=== PATIENT | female | born 1945 | race Caucasian/White ===

== ENCOUNTER 2018-08-19 07:11 | Inpatient (IN) | payer MEDICARE ==
--- NOTE | 2018-08-11 12:22 | HP ---
AMENDED REPORT NOW INCLUDES COSIGNER DESIGNATION HISTORY AND PHYSICAL: DATE OF SURGERY: 08/19/18 DATE OF OFFICE VISIT: 08/11/18 SURGEON: Ayanna Kevin MD.* (DICTATED BY VISHNU WEST) PROCEDURE: Left total hip arthroplasty. CHIEF COMPLAINT: Left hip pain. HISTORY OF PRESENT ILLNESS: Ms. Hong is a 73-year-old female with continued complaints of left hip pain. She has failed conservative treatment and elected to proceed with a left total hip arthroplasty. PAST MEDICAL HISTORY: CLL. PAST SURGICAL HISTORY: Cataract removal, meatotomy, and tonsillectomy. CURRENT MEDICATIONS: 1. Tramadol 50 mg 2 to 3 times a day as needed. 2. Glucosamine. 3. Multivitamin. 4. Aspirin. ALLERGIES: SULFA. FAMILY HISTORY: Brain cancer. SOCIAL HISTORY: She is a 73-year-old female. She lives alone. She does not smoke or use drugs. She uses alcohol occasionally. REVIEW OF SYSTEMS: A complete 14-point review of systems was reviewed with the patient. It is all negative or noncontributory. She denies history of DVT, PE , hepatitis, HIV, or anesthesia problems. PHYSICAL EXAMINATION GENERAL: She is well developed, well nourished, in no acute distress. VITAL SIGNS: She stands 5 feet 1 inch tall, weighs 189 pounds. Her blood pressure is 146/86 and heart rate is 100. HEENT: Normocephalic, atraumatic. NECK: Supple. No palpable lymph nodes. PULMONARY: The lungs are clear to auscultation bilaterally. CARDIO: Regular rate and rhythm. Strong S1, S2. ABDOMEN: Soft, nontender, nondistended. NEUROLOGIC: She is alert and oriented x3. MUSCULOSKELETAL: Left lower extremity: The skin is intact. There are no open wounds or abrasions. She walks with an antalgic-type gait favoring her left hip. She has decreased internal and external rotation of the left hip. She has 2+ dorsalis pedis pulse. She has intact sensation in her lower extremities. Muscle group strength is intact at 5/5. ASSESSMENT AND PLAN: Ms. Hong is a 73-year-old female with end-stage osteoarthritis of the left hip. She has failed conservative treatment and elected to proceed with a left total hip arthroplasty. Surgery scheduled for with Dr. Kevin. Dr. Kevin discussed the risks and benefits of the surgery at today's visit and all of her questions were answered. She will follow up with Dr. Kevin 2 weeks after the surgery. VISHNU WEST [id number]/[facility] #: [id number] MTDLuz Maria
[~2018-08-19 07:11] MED LIST: Buffered Lidocaine 1% SYRIN* 1 ML/SYRINGE INTRADERM ONE; Famotidine IV* 10 MG/ML 2 ML (20 mg) IV ONE; Gabapentin CAP(*) 300 MG PO ONE; Lactated Ringers 1000 ML Bag* 1,000 ML IV SCH
--- OUTSIDE RECORDS SUMMARY | 2018-08-19 07:14 | XMS REPORT | Continuity of Care Document ---
:1945 External Reference #:[id number] Author Name Bev Perales Care Team Providers Name Role Phone Mary Ryder MD Primary Care Physician Unavailable Payers Date Identification Numbers Payment Provider Subscriber Policy Number: [id number] [employer] [address] Hong PayID: [id number] [address] [address] Attn: [place] [address] Advance Directives Description No Information Available Problems Date Description Provider Status Onset: 03/19/2018 Localized, primary osteoarthritis of the Ayanna Joseph Kevin Active pelvic region and thigh Family History Date Family Member(s) Observation Comments General Cancer Social History Type Date Description Comments Sex Unknown Lives With Alone Occupation Retired ETOH Use Occasionally consumes alcohol Tobacco Use Start: Unknown Patient has never smoked Smoking Status Reviewed: 08/11/18 Patient has never smoked Exercise Type/Frequency Exercises sporadically Allergies, Adverse Reactions, Alerts Date Description Reaction Status Severity Comments 03/19/2018 Sulfa Antibiotics Active Medications Medication Date Status Form Strength Qnty SIG Indications Ordering Provider Tramadol HCL Active Tablets 50mg 60tabs 1 tab Ayanna 018 marisol Kevin M.D. times a day as needed for pain Glucosamine Active Unknown 000 Multi Complete Active Unknown 000 Aspirin Active Unknown 000 Garlic Hx Unknown 000 - 019 Medications Administered in Office Medication Date Status Form Strength Qnty SIG Indications Ordering Provider No Injection Administered Injection Ayanna 018 Joseph Kevin Depomedrol Administered Injection Ayanna 40MG 018 Herberth, M.D. Immunizations Description No Information Available Vital Signs Date Vital Result Comment 08/11/2018 9:14am Height 61.5 inches 5'1.50" Weight 189.00 lb Heart Rate 100 /min BP Systolic 146 mmHg BP Diastolic 86 mmHg BMI (Body Mass Index) 35.1 kg/m2 06/16/2018 8:14am Height 61.5 inches 5'1.50" Weight 189.00 lb Heart Rate 92 /min BP Systolic 128 mmHg BP Diastolic 72 mmHg BMI (Body Mass Index) 35.1 kg/m2 04/28/2018 11:44am Height 61.5 inches 5'1.50" Heart Rate 88 /min BP Systolic 128 mmHg BP Diastolic 80 mmHg Body Temperature 98.1 F Pain Level 1 04/14/2018 11:42am Heart Rate 84 /min BP Systolic 132 mmHg BP Diastolic 80 mmHg Body Temperature 97.4 F Pain Level 5 03/19/2018 11:29am Height 61.5 inches 5'1.50" Weight 192.00 lb Heart Rate 88 /min BP Systolic 146 mmHg BP Diastolic 80 mmHg BMI (Body Mass Index) 35.7 kg/m2 Results Description No Information Available Procedures Date Code Description Status 04/14/2018 78318 Inj/Aspir Major JT Or Bursa W/ US Completed Encounters Type Date Location Provider Dx Diagnosis Office Visit 06/16/2018 [email or web address] Unilateral primary 8:00a [facility], left hip M25.552 Pain in left hip Office Visit 04/28/2018 Orthopedic Ayanna M16.12 Unilateral primary 11:30a [facility] osteoarthritis, left [facility] hip M25.552 Pain in left hip Office Visit 03/19/2018 11:00a [facility] Ayanna Kevin M25.552 Pain in left [facility] hip M16.12 Unilateral primary osteoarthritis, left hip Plan of Treatment Future Appointment(s):09/01/2018 9:15 am - Ayanna Kevin M.D. at [facility]/19/2018 10:30 am - Fadi Montiel PA-C at [facility]08/19/2018 10:30 am - VISHNU Fields at [facility]08/19/2018 10:30 am - Ayanna Kevin M.D. at [facility]08/11/2018 - Ayanna Kevin M.D.M16.12 Unilateral primary osteoarthritis, left hipFollow up:Follow up: 2 weeks after [id number] Pain in left hip
[2018-08-19] MEDS ORDERED: Gabapentin CAP(*) 300 MG ONE (07:43)
[2018-08-19] MEDS ORDERED: Famotidine IV* 10 MG/ML 2 ML (20 mg) ONE (07:43)
[2018-08-19] MEDS ORDERED: Buffered Lidocaine 1% SYRIN* 1 ML/SYRINGE INTRADERM ONE (07:43)
[2018-08-19] MEDS ORDERED: ceFAZolin 2 GM in NS PREMIX(*) 2 GM/100 ML BAG IVPB ONE (07:43)
[2018-08-19] MEDS ORDERED: Dexamethasone IV* 4 MG/ML 1 ML (4 MG) ONE (08:02)
[2018-08-19] MEDS ORDERED: Ketorolac INJ* 30 MG/ML 1 ML VIAL ONE (08:02)
[2018-08-19] MEDS ORDERED: Ondansetron INJ* 2 MG/ML VIAL ONE (08:02)
[2018-08-19] MEDS ORDERED: Propofol* 10 MG/ML 20 ML BTL ONE (08:02)
[2018-08-19] MEDS ORDERED: Lidocaine 2% PF * 5 ML VIAL ONE (08:02)
[2018-08-19] MEDS ORDERED: Midazolam* 1 MG/ML 5 ML VIAL (5 MG) ONE (08:03)
[2018-08-19] MEDS ORDERED: Phenylephrine INJ* 10 MG/ML 1 ML VIAL (10 MG) ONE (08:03)
[2018-08-19] MEDS ORDERED: KETAMINE HCL* 50 MG/ML 10 ML VIAL ONE (08:03)
[2018-08-19] MEDS ORDERED: fentaNYL* 50 MCG/ML 5 ML VIAL (250 MCG VIAL) ONE (08:03)
[2018-08-19] MEDS ORDERED: Bupivacaine 0.5% SDV PF* 30ML VIAL ONE (08:35)
[2018-08-19] MEDS ORDERED: fentaNYL* 50 MCG/ML 2 ML VIAL (100 MCG VIAL) ONE ×2 (08:48→11:47)
[2018-08-19] MEDS ORDERED: Cisatracurium* 2 MG/ML MDV 5 ML ONE (09:24)
[2018-08-19] MEDS ORDERED: EPHEDrine (Pressors)* 50 MG/ML VIAL ONE (10:36)
[2018-08-19] MEDS ORDERED: ROPIVACAINE 5 MG/ML 30 ML BTL (0.5%) ONE (10:53)
[2018-08-19] MEDS ORDERED: fentaNYL* 50 MCG/ML 2 ML VIAL (100 MCG VIAL) IV PRN (11:00)
[2018-08-19] MEDS ORDERED: Ondansetron INJ* 2 MG/ML VIAL IV PRN ×2 (11:00→11:47)
[2018-08-19] MEDS ORDERED: HYDROmorphone INJ1* 1 MG/ML SYRINGE IV PRN (11:00)
[2018-08-19] MEDS ORDERED: Naloxone* 0.4 MG/ML 1 ML VIAL IV PRN (11:00)
[2018-08-19] MEDS ORDERED: oxyCODONE/Acetamin 5/325 MG* TAB PO PRN ×2 (11:47)
[2018-08-19] MEDS ORDERED: Magnesium Hydroxide LIQ* 30 ML UDC PO PRN (11:47)
[2018-08-19] MEDS ORDERED: Morphine 4 MG/ML VIAL (1 ml) 4 MG/ML VIAL IV PRN (11:47)
[2018-08-19] MEDS ORDERED: diPHENhydraMINE IV* 50 MG/ML 1 ml VIAL (BENADRYL) IV PRN (11:47)
[2018-08-19] MEDS ORDERED: Cyclobenzaprine TAB* 10 MG PO PRN (11:47)
[2018-08-19] MEDS ORDERED: Bisacodyl SUPP* 10 MG SUPP PR PRN (11:47)
[2018-08-19] MEDS ORDERED: oxyCODONE TAB* 5 MG TAB PO PRN (11:47)
[2018-08-19] MEDS ORDERED: Acetaminophen TAB* 325 MG ONE (13:04)
[2018-08-19] MEDS: Acetaminophen TAB* 325 MG PO PRN ×2 (13:05→20:46)
[2018-08-19] MEDS: Lactated Ringers 1000 ML Bag* 1,000 ML IV SCH (13:40)
--- NOTE | 2018-08-19 16:21 | PN ---
Progress Note - Progress Note Date of Service: 08/19/18 SOAP: Subjective: [Pt was seen sitting in bed. She states she is doing quite well. Has only needed tylenol at this point. Pain well controlled. denies any chest pain, SOB, nausea, vomiting. ] Objective: [General: Pt is alert and oriented x3. NAD. MSK, LLE:Dressing is c/d/i. +df/pf. 2+ DP pulse ] Vital Signs Temp 96.9 F 08/19/18 14:29 Pulse 86 08/19/18 14:29 Resp 16 08/19/18 14:29 BP 151/68 08/19/18 14:29 Pulse Ox 99 08/19/18 14:29 Intake & Output 08/18/18 08/19/18 08/19/18 18:59 06:59 18:59 Intake Total 1800 Balance 1800 Weight 188 lb Intake: IV Fluids 1800 LR 1800 Assessment: [POD 0 LTHA] Plan: [PT/OT Abx x 24 hours ]
[2018-08-19] MEDS: ceFAZolin 1 GM in Dextrose (*) 1 GM/50 ML BAG IVPB SCH (16:56)
[2018-08-19] MEDS: traMADol TAB* 50 MG PO PRN ×2 (16:56→22:55)
[2018-08-19] MEDS: Docusate CAP* 100 MG PO SCH (20:45)
[2018-08-19] MEDS: Magnesium Hydroxide LIQ* 30 ML UDC PO SCH (20:45)
--- NOTE | 2018-08-19 21:32 | OP ---
DATE OF OPERATION: 08/19/18 - ROOM #343 DATE OF : 49 SURGEON: Ayanna Kevin MD. SLITTER CREASER SLOTTER HELPER: VISHNU Florez. Tiana did help throughout the procedure with preparation of the leg, wound retraction, manipulation of the hip, and wound closure. ANESTHESIOLOGIST: Dr. Saini. ANESTHESIA: General. PRE-OP DIAGNOSIS: Severe end-stage degenerative osteoarthritis of the left hip secondary to dysplasia. POST-OP DIAGNOSIS: Severe end-stage degenerative osteoarthritis of the left hip secondary to dysplasia. OPERATIVE PROCEDURE: Left total hip arthroplasty. ESTIMATED BLOOD LOSS: 200 cc. COMPLICATIONS: None. SPECIMEN: Femoral head and acetabular reamings from the left hip sent to pathology. HARDWARE USED: This is Roscoe uncemented total hip arthroplasty hardware. For the cup, a Trident hemispherical acetabular shell 46C. For the insert, a Trident neck 3, 0-degree polyethylene insert 32C. For the stem, an Accolade 2, size 3, with a 132-degree neck; and for the head, a Biolox delta ceramic V40 femoral head 32 -4. BRIEF HISTORY/INDICATIONS: Ms. Hong is a 73-year-old female who developed chronic left hip pain. Her pain worsened over the last 2 years. She failed conservative treatment with antiinflammatories, acupuncture, multi care technician, physical therapy, and intraarticular injection. Radiographs showed bone-on- bone arthritis with dysplasia. Due to continued pain and decreased quality of life, the patient elected to undergo left total hip arthroplasty. Informed consent was obtained from the patient. She understood the risks of surgery included, but were not limited to, bleeding, infection, damage to nearby structures, continued pain, need for further surgery, intraoperative fracture, nerve palsy, hardware failure or loosening, dislocation, leg-length discrepancy , stroke, heart attack, blood clot, and . She wished to proceed. INTRAOPERATIVE FINDINGS: Intraoperatively, the patient was noted to have severe end-stage arthritis with significant loss of cartilage along the femoral head and acetabulum. Her acetabulum was shallow with extensive osteophyte formation. DESCRIPTION OF PROCEDURE: Ms. Hong was identified in the preanesthesia unit. Her left lower extremity was marked as the correct operative side. Informed consent was signed and placed in the chart. The patient was taken to the operating room and placed under general anesthesia. A Romo catheter was placed. She was placed on the pegboard and all bony prominences were well padded. Left lower extremity was prepped and draped in the usual sterile fashion. Preop time-out was made to correctly identify the patient's side and site. Appropriate perioperative antibiotics were given within 1 hour of incision. A standard posterior hip incision was made with a 10-blade and carried down to the lateral fascial layer. Lateral fascial layer was incised in line with skin incision. Charnley retractor was placed. The piriformis and conjoint tendons were identified and elevated off the posterolateral femur using electrocautery. These were tagged with #5 Ethibond. Next, electrocautery was used to make a standard posterolateral capsular flap. This was tagged with #5 Ethibond. The hip was carefully dislocated. Lesser troch to center of the femoral head measured 50 mm. Oscillating saw was used to make the femoral neck cut. Femur was retracted anteriorly. After appropriate placement of retractors, the acetabulum was well visualized. Long- handled knife was used to sharply remove any remaining labrum from the acetabular rim. The acetabulum was sequentially reamed up to a size 45 mm reamer. The 46 Trident C hemisphere class acetabular shell was chosen as the final implant. This was impacted into the acetabulum without difficulty. The cup had excellent stability with appropriate abduction angle and anteversion. The liner chosen was a Trident neck 3, 0-degree polyethylene insert 32C. This was impacted into the acetabulum without difficulty. Stability of the liner was checked and rechecked and noted to be stable. Next, attention was turned to preparation of the femoral canal. A canal finder was used to enter the femur. Femur was sequentially broached up to a size 3. Size 3 broach had excellent fit and appropriate anteversion. A 132 neck trial with a 32 +0 head trial was chosen and measured. Lesser troch to center of the femoral head measured 56 mm. Therefore, a -4 head was chosen. Lesser troch to center of the femoral head measured 51 mm. The hip was reduced and taken through a range of motion. The hip was stable in all positions. There was good soft tissue tension and appropriate leg lengths. The hip was carefully dislocated and all trials were removed. Final implant chosen was an Accolade 2, size 3 with a 132-degree neck angle. This was impacted into the femoral canal without difficulty. There was excellent stability of the implant. A Biolox delta ceramic V40 femoral head 32- 4 was chosen as the final head. This was impacted onto the femoral neck. Lesser troch to center of the femoral head measured 50 mm. The hip was reduced and taken through a range of motion. The hip was stable in all positions. There was good soft tissue tension and appropriate leg lengths. The hip was copiously irrigated with sterile saline. Previously tagged capsule and tendons were reapproximated to the posterolateral femur using 2 trochanteric drill holes. Lateral fascial layer was closed using interrupted #1 Vicryls. The rest of the incision was closed in a layered fashion using 0 and 2-0 Vicryls. The skin was closed using running 3-0 Monocryl suture and Dermabond. Sterile Adaptic, 4x4s, and paper tape were used to cover the incision. The patient's anesthesia was reversed without difficulty. She was taken to the PACU in stable condition. Intended weightbearing will be weightbearing as tolerated. Intended DVT prophylaxis will be Eliquis. [id number]/[facility] #: [id number] [facility]
[2018-08-20] MEDS: ceFAZolin 1 GM in Dextrose (*) 1 GM/50 ML BAG IVPB SCH ×2 (01:12→09:42)
[2018-08-20] MEDS: Lactated Ringers 1000 ML Bag* 1,000 ML IV SCH (01:12)
[2018-08-20] MEDS: traMADol TAB* 50 MG PO PRN ×4 (04:47→23:44)
[2018-08-20] MEDS: Acetaminophen TAB* 325 MG PO PRN ×3 (04:47→21:07)
[2018-08-20 06:08] LABS: Hematocrit 31 % (35-47); Hemoglobin 9.7 g/dl (12.0-16.0); Mean Platelet Volume 8.1 fL (7.4-10.4); Platelet Count 177 10^3/ul (150-450)
[2018-08-20 06:13] LABS: INR 1.01 (0.77-1.02)
[2018-08-20 06:16] LABS: Calcium 8.7 mg/dL (8.6-10.3); Potassium 4.7 mmol/L (3.5-5.0)
[2018-08-20 06:22] LABS: EGFR African American 77.7 (>60); EGFR Non-African American 64.2 (>60)
[2018-08-20] MEDS: Vitamin THERAPEUTIC TAB PO SCH (08:42)
[2018-08-20] MEDS: Docusate CAP* 100 MG PO SCH ×2 (08:42→21:06)
[2018-08-20] MEDS: Magnesium Hydroxide LIQ* 30 ML UDC PO SCH ×2 (08:43→21:07)
[2018-08-20] MEDS: Enoxaparin(*) 40 MG/0.4 ML SYR SUBCUT SCH (11:29)
--- NOTE | 2018-08-20 11:46 | PN ---
Progress Note - Progress Note Date of Service: 08/20/18 SOAP: Subjective: []Pt seen and examined at bedside. She feels very well without chest pain, shortness of breath, dizziness or nausea. Her right hip pain is much improved from preop and she desires DC home today. Objective: []General: Well appearing, NAD RLE: Right hip dressing CDI, thigh is soft, DF/PF intact, DP2+, sensation intact to light touch distally Calves are supple and nontender without erythema, edema or palpable cords Assessment: []Right total hip arthroplasty POD 1 08/19 Dr Kevin Plan: []WBAT PT/OT Posterior hip precautions Lovenox 40 mg sq qd x 30 days hx CLL, Ortho PA discussed anticoag approach with her oncologist Dr Pierce yesterday Plan for DC home today, will change dressing before DC Vital Signs Temp 98.3 F 08/20/18 07:34 Pulse 86 08/20/18 07:34 Resp 18 08/20/18 11:28 BP 140/66 08/20/18 07:34 Pulse Ox 98 08/20/18 08:00 Intake & Output 08/19/18 08/20/18 08/20/18 18:59 06:59 18:59 Intake Total 6077 190 3792 Output Total 1150 850 200 Balance 650 -130 844 Weight 188 lb Intake: IV Fluids 1800 694 LR 1800 694 IVPB 110 LR 110 Oral 720 240 Output: Urine 200 Romo 1150 850 Laboratory Last Values Hgb 9.7 g/dl (12.0-16.0) L 08/20/18 05:48 Hct 31 % (35-47) L 08/20/18 05:48 Plt Count 177 10^3/ul (150-450) 08/20/18 05:48 MPV 8.1 fL (7.4-10.4) 08/20/18 05:48 INR (Anticoag Therapy) 1.01 (0.77-1.02) 08/20/18 05:48 Sodium 137 mmol/L (135-145) 08/20/18 05:48 Potassium 4.7 mmol/L (3.5-5.0) 08/20/18 05:48 Chloride 104 mmol/L (101-111) 08/20/18 05:48 Carbon Dioxide 27 mmol/L (22-32) 08/20/18 05:48 Anion Gap 6 mmol/L (2-11) 08/20/18 05:48 BUN 20 mg/dL (6-24) 08/20/18 05:48 Creatinine 0.87 mg/dL (0.51-0.95) 08/20/18 05:48 Est GFR ( Amer) 77.7 (>60) 08/20/18 05:48 Est GFR (Non-Af Amer) 64.2 (>60) 08/20/18 05:48 BUN/Creatinine Ratio 23.0 (8-20) H 08/20/18 05:48 Glucose 159 mg/dL (70-100) H 08/20/18 05:48 Calcium 8.7 mg/dL (8.6-10.3) 08/20/18 05:48
[2018-08-21] MEDS: traMADol TAB* 50 MG PO PRN ×2 (05:43→11:46)
[2018-08-21] MEDS: Acetaminophen TAB* 325 MG PO PRN (05:43)
[2018-08-21 07:28] LABS: Hematocrit 28 % (35-47); Hemoglobin 9.1 g/dl (12.0-16.0); Mean Platelet Volume 8.1 fL (7.4-10.4); Platelet Count 150 10^3/ul (150-450)
[2018-08-21] MEDS: Magnesium Hydroxide LIQ* 30 ML UDC PO SCH (08:48)
[2018-08-21] MEDS: Docusate CAP* 100 MG PO SCH (08:48)
[2018-08-21] MEDS: Vitamin THERAPEUTIC TAB PO SCH (08:48)
--- NOTE | 2018-08-21 09:57 | PN ---
Progress Note - Progress Note Date of Service: 08/21/18 SOAP: Subjective: []Pt seen at bedside. She feels very well and desires DC to home. Pain is well controlled. Denies CP, SOB, dizziness or nausea. She stayed the night for pain control and to work more with inpatient PT to increase comfort of going home. Her daughter is her care speech coach and is at bedside with her. Objective: [] General: Well appearing, NAD RLE: Right hip dressing changed, incision CDI, thigh is soft, DF/PF intact, DP2+ , sensation intact to light touch distally Calves are supple and nontender without erythema, edema or palpable cords Assessment: []Right total hip arthroplasty POD 2 08/19 Dr Kevin Plan: []WBAT PT/OT Posterior hip precautions Lovenox 40 mg sq qd x 30 days hx CLL Plan for DC home today Vital Signs Temp 97.8 F 08/21/18 07:45 Pulse 80 08/21/18 07:45 Resp 18 08/21/18 08:00 BP 136/69 08/21/18 07:45 Pulse Ox 100 08/21/18 08:00 Intake & Output 08/20/18 08/21/18 08/21/18 18:59 06:59 18:59 Intake Total 1764 1360 Output Total 600 1050 Balance 1164 310 Intake: IV Fluids 694 LR 694 IVPB 110 LR 110 Oral 960 1360 Output: Urine 600 1050 Other: Estimated Void Medium # Bowel Movements 1 Estimated Stool Amount Large # Voids 1 Laboratory Last Values Hgb 9.1 g/dl (12.0-16.0) L 08/21/18 07:10 Hct 28 % (35-47) L 08/21/18 07:10 Plt Count 150 10^3/ul (150-450) 08/21/18 07:10 MPV 8.1 fL (7.4-10.4) 08/21/18 07:10 INR (Anticoag Therapy) 1.01 (0.77-1.02) 08/20/18 05:48 Sodium 137 mmol/L (135-145) 08/20/18 05:48 Potassium 4.7 mmol/L (3.5-5.0) 08/20/18 05:48 Chloride 104 mmol/L (101-111) 08/20/18 05:48 Carbon Dioxide 27 mmol/L (22-32) 08/20/18 05:48 Anion Gap 6 mmol/L (2-11) 08/20/18 05:48 BUN 20 mg/dL (6-24) 08/20/18 05:48 Creatinine 0.87 mg/dL (0.51-0.95) 08/20/18 05:48 Est GFR ( Amer) 77.7 (>60) 08/20/18 05:48 Est GFR (Non-Af Amer) 64.2 (>60) 08/20/18 05:48 BUN/Creatinine Ratio 23.0 (8-20) H 08/20/18 05:48 Glucose 159 mg/dL (70-100) H 08/20/18 05:48 Calcium 8.7 mg/dL (8.6-10.3) 08/20/18 05:48
[2018-08-21 11:39] VITALS: BP 149/55
[2018-08-21] MEDS: Enoxaparin(*) 40 MG/0.4 ML SYR SUBCUT SCH (11:46)
--- NOTE | 2018-08-21 11:47 | DS ---
AMENDED REPORT NOW INCLUDES DESIGNATED COSIGNER DISCHARGE SUMMARY: DATE OF ADMISSION: 08/19/18 DATE OF DISCHARGE: 08/21/18 PROVIDER: Dr. Ayanna Kevin * (DICTATED BY VISHNU YATES) PRE-OP DIAGNOSIS: Severe end-stage degenerative osteoarthritis of the left hip secondary to dysplasia. OPERATIVE PROCEDURE: Left total hip arthroplasty. HISTORY: Ms. Hong is a 73-year-old female who developed chronic left hip pain and her pain worsened over the last 2 years. She has failed conservative treatment with antiinflammatories, acupuncture, medicare nurse, physical therapy and intraarticular injection. She elected to undergo a left total hip arthroplasty. HOSPITAL COURSE: The patient was admitted to [facility] on . She underwent a left total hip arthroplasty without complication. Postop day 1, she was well appearing, in no acute distress. Dressing was clean, dry, and intact. Dorsiflexion and plantarflexion intact. DP 2+. Sensation intact to light touch distally. Patient was progressing well with PT, but for pain control and desire to work more with inpatient PT to increase comfort at home, she spent the night. Postop day 2, she is well appearing, in no acute distress. Right hip dressing changed. Incision clean, dry, and intact. Thigh is soft. Dorsiflexion and plantarflexion intact. DP 2+. Sensation intact to light touch distally. Vital Signs: Temperature 97.8, pulse 80, respiratory rate 18, blood pressure 136/69, pulse 100. Labs Studies: Hemoglobin 9.1, hematocrit 28. Sodium 137, potassium 4.7. DISCHARGE MEDICATIONS: 1. Glucosamine and chondroitin 1 tab p.o. Saturday, Saturday, Saturday. 2. Please discontinue aspirin at home as you have been using for pain control, as you are on another blood thinner. 3. Dandelion root. 4. Brain and Focus multivitamin. 4. Acetaminophen 650 mg every 8 hours as needed for pain, patient may take up to 4000 mg of acetaminophen from all sources in 1 day. 5. Lovenox 40 mg subcu injection for 30 days. 6. Tramadol 50 mg 1 to 2 tabs every 6 hours as needed for pain, max of 8 per day. 7. Docusate 100 mg p.o. b.i.d. p.r.n. constipation. DISCHARGE PLAN: Patient will be discharged to home in good condition on . She will follow hip precautions. Continue physical therapy and occupational therapy. DVT prophylaxis is Lovenox 40 mg subcu daily. Pain control, tramadol 50 g 1 to 2 tabs every 6 hours as needed for pain, max of 8 per day. Follow up with Dr. Kevin in 10 to 14 days. She is discharged to home in stable condition on 08/21/18. VISHNU FARAH [id number]/[facility] #: [id number] [facility]
== END 2018-08-21 13:20 | disposition home health service (06) | DRG 470 ==
LOC: AA 07:11 → SSU 11:47
PROVIDERS: ADMIT Orthopaedic Surgery Adult Reconstructive Orthopaedic Surgery; ATTEND Orthopaedic Surgery Adult Reconstructive Orthopaedic Surgery
PROC: 0SRB04A Replacement of Left Hip Joint with Ceramic on Polyethylene Synthetic Substitute, Uncemented, Open Approach (ICD-10-PCS; principal; 2018-08-19 09:00)
DX: M16.12 Unilateral primary osteoarthritis, left hip (principal); C91.10 Chronic lymphocytic leukemia of B-cell type not having achieved remission; G89.29 Other chronic pain; M25.752 Osteophyte, left hip; E78.2 Mixed hyperlipidemia; Z80.8 Family history of malignant neoplasm of other organs or systems; Q65.89 Other specified congenital deformities of hip; Z72.89 Other problems related to lifestyle; Z98.42 Cataract extraction status, left eye; Z88.2 Allergy status to sulfonamides; Z98.41 Cataract extraction status, right eye; Z82.3 Family history of stroke
CPT/HCPCS: 36415; 72170; 80048; 85014; 85018; 85049; 85610; A9270-GY; C1776; G8978-GP-CI; G8987-GO-CJ; G8988-GO-CJ; G8989-GO-CJ; J0690; J1100; J1650; J1885; J2250; J2405; J2704; J2795; J3010